=== PATIENT | female | born 1940 | race Caucasian/White ===

== ENCOUNTER 2020-10-24 10:15 | Emergency (ER) | payer MEDICARE ==
--- NOTE | 2020-10-24 11:06 | EDM.PDOC ---
ED HPI GENERAL MEDICAL PROBLEM - General Chief Complaint: ENT Problem Stated Complaint: EARS ARE PLUGGED Time Seen by Provider: 10/24/20 10:40 Source of Information: Reports: Patient, Old Records, RN History Limitations: Reports: No Limitations - History of Present Illness INITIAL COMMENTS - FREE TEXT/NARRATIVE: 80 yo female presents requesting her R ear be flushed out due to not being able to hear out of it and also because she if flying to [place] tomorrow. She has not pain. She has been using OTC drops for a few days without much result. Onset: Sudden Onset Date: 10/21/20 Duration: Day(s):, Constant Location: Reports: Head (R ear) Quality: Reports: Other (no pain) Severity: Severe (hearing deficit in that ear) Improves with: Reports: None Worsens with: Reports: None Context: Reports: Other (See HPI) Associated Symptoms: Reports: No Other Symptoms Treatments BEAD BUILDER: Reports: Other (see below) (OTC ear drops) - Related Data Allergies Allergy/AdvReac Type Severity Reaction Status Date / Time No Known Allergies Allergy Verified 10/24/20 10:34 Home Meds: Home Meds Diltiazem IR [Cardizem] 30 mg PO DAILY 10/24/20 [History] Levothyroxine Sodium [Synthroid] 25 mcg PO ACBREAKFAST 10/24/20 [History] atenoloL [Atenolol] 25 mg PO DAILY 10/24/20 [History] Past Medical History HEENT History: Reports: Glaucoma Cardiovascular History: Reports: Afib, High Cholesterol, Hypertension Gastrointestinal History: Reports: None Genitourinary History: Reports: None Endocrine/Metabolic History: Reports: Hypothyroidism - Infectious Disease History Infectious Disease History: Reports: Chicken Pox, Measles, MRSA, Mumps, Pertussis (Whooping Cough) - Past Surgical History Head Surgeries/Procedures: Reports: None HEENT Surgical History: Reports: Cataract Surgery, Tonsillectomy Cardiovascular Surgical History: Reports: None GI Surgical History: Reports: Colon Female Surgical History: Reports: Hysterectomy Endocrine Surgical History: Reports: None Dermatological Surgical History: Reports: None Social & Family History - Tobacco Use Tobacco Use Status *Q: Never Tobacco User Second Hand Smoke Exposure: No - Caffeine Use Caffeine Use: Reports: Coffee - Recreational Drug Use Recreational Drug Use: No ED ROS ENT - Review of Systems Review Of Systems: See Below Constitutional: Reports: No Symptoms HEENT: Reports: Other (decreased hearing on right) Respiratory: Reports: No Symptoms Skin: Reports: No Symptoms Neurological: Reports: Dizziness (slight at times) ED EXAM, ENT - Physical Exam Exam: See Below Exam Limited By: No Limitations General Appearance: Alert, WD/WN, No Apparent Distress Eye Exam: Bilateral Eye: Normal Inspection Ears: Normal TMs (on left with some wax present), TM Obscured by Cerumen (on right) Nose: Normal Inspection, No Blood Mouth/Throat: Normal Inspection, Normal Lips, Normal Oropharynx Head: Atraumatic, Normocephalic Neck: Normal Inspection Respiratory/Chest: No Respiratory Distress Neurological: Alert, Oriented, Normal Cognition Psychiatric: Normal Affect, Normal Mood Skin: Warm, Dry, Intact, Normal Color, No Rash Course - Vital Signs Last Recorded V/S: Last Vital Signs Temp 36.6 C 10/24/20 10:44 Pulse 67 10/24/20 10:44 Resp 17 10/24/20 10:44 BP 143/71 H 10/24/20 10:44 Pulse Ox 96 10/24/20 10:44 - Re-Assessments/Exams Free Text/Narrative Re-Assessment/Exam: 10/24/20 10:57 ears flushed by RN, Normal exam afterwards. Hearing was restored to the R ear. Departure - Departure Time of Disposition: 11:06 Disposition: Home, Self-Care 01 Condition: Good Clinical Impression: Cerumen impaction Qualifiers: Laterality: right Qualified Code(s): H61.21 - Impacted cerumen, right ear - Discharge Information *PRESCRIPTION DRUG MONITORING PROGRAM REVIEWED*: Not Applicable *COPY OF PRESCRIPTION DRUG MONITORING REPORT IN PATIENT ROWDY: Not Applicable Referrals: PCP,None [Primary Care Provider] - Additional Instructions: Put isopropyl alcohol in your ears when you get home. Return as needed. Sepsis Event Note (ED) - Evaluation Sepsis Screening Result: No Definite Risk - Focused Exam Vital Signs: Vital Signs Temp Pulse Resp BP Pulse Ox 10/24/20 10:44 36.6 C 67 17 143/71 H 96 10/24/20 10:43 36.6 C 67 17 143/71 H 96
== END 2020-10-24 11:13 | disposition home or self-care (01) ==
LOC: JP.ED 10:15
DX: H61.21 Impacted cerumen, right ear (principal); I48.91 Unspecified atrial fibrillation; I10 Essential (primary) hypertension; E03.9 Hypothyroidism, unspecified; Z79.899 Other long term (current) drug therapy
CPT/HCPCS: 99282